=== PATIENT | male | born 1980 | race Caucasian/White ===

== ENCOUNTER 2016-11-28 02:25 | Emergency (ER) | payer SELFPAY ==
[~2016-11-28 02:25] MED LIST: B COMPLETE1 EACH PO; FISH OIL500 M1 PO; LOPRESSOR 550 MG/TAB PO; MULTIVITAMIN1 SGL PO; NORCO 325 MG-51 TA1 PO
== END 2016-11-28 04:28 | disposition home or self-care (01) ==
LOC: ED 02:25
DX: G54.0 Brachial plexus disorders (principal); M54.42 Lumbago with sciatica, left side; E66.01 Morbid (severe) obesity due to excess calories; Z68.45 Body mass index [BMI] 70 or greater, adult
CPT/HCPCS: J1885

== ENCOUNTER 2018-06-01 10:20 | Emergency (ER) | payer SELFPAY ==
[~2018-06-01] VITALS: Wt 250.1 kg
[2018-06-01] MEDS ORDERED: PRINIVIL20 M1 PO (10:24)
[2018-06-01] MEDS ORDERED: LASIX20 M1 PO (10:24)
[2018-06-01 12:23] LABS: EOS # 0.4 (0.04-0.40); HEMATOCRIT 48.6 % (42.0-52.0); HEMOGLOBIN 14.7 g/dL (13.5-18.0); LYMPH# 1.7 (1.50-4.00); MEAN CELL VOLUME 85 fl (78-100); MEAN CORPUSCULAR HEMOGLOBIN 26 pg (27-31); MEAN CORPUSCULAR HGB CONC 30 g/dL (33-37); MEAN PLATELET VOLUME 10.4 fl (7.4-10.4); MONO # 0.8 (0.20-0.80); NEU # 10.2 (1.40-6.50); PLATELET COUNT 290 K/mm3 (130-400); RED BLOOD COUNT 5.75 M/mm3 (4.20-5.60); RED CELL DISTRIBUTION WIDTH 16.6 % (11.5-14.5); WHITE BLOOD COUNT 13.2 K/mm3 (4.8-10.8)
[2018-06-01 12:37] LABS: ALBUMIN 3.9 g/dL (3.5-5.0); CALCIUM 8.5 mg/dL (8.4-10.2); TOTAL BILIRUBIN 0.8 mg/dL (0.2-1.3); TOTAL PROTEIN 7.4 g/dL (6.3-8.2)
[2018-06-01 12:38] LABS: POTASSIUM 5.5 mmol/L (3.6-5.0)
[2018-06-01 15:56] VITALS: BP 166/99
== END 2018-06-01 15:38 | disposition short-term general hospital (02) ==
LOC: ED 10:20
PROVIDERS: Family Medicine
DX: E66.2 Morbid (severe) obesity with alveolar hypoventilation (principal); I27.81 Cor pulmonale (chronic); I10 Essential (primary) hypertension; M79.671 Pain in right foot; Z91.14 Patient's other noncompliance with medication regimen; Z79.899 Other long term (current) drug therapy; R60.0 Localized edema; E65 Localized adiposity; L08.9 Local infection of the skin and subcutaneous tissue, unspecified; L53.9 Erythematous condition, unspecified
CPT/HCPCS: J1940

== ENCOUNTER 2018-07-05 20:01 | Emergency (ER) | payer SELFPAY ==
[~2018-07-05] VITALS: Ht 167.6 cm; Wt 222.7 kg
[~2018-07-05 20:01] MED LIST changes: +LASIX20 M1 PO; +PRINIVIL20 M1 PO
[2018-07-05 21:45] LABS: EOS # 0.5 (0.04-0.40); HEMATOCRIT 45.5 % (42.0-52.0); HEMOGLOBIN 14.5 g/dL (13.5-18.0); LYMPH# 1.7 (1.50-4.00); MEAN CELL VOLUME 81 fl (78-100); MEAN CORPUSCULAR HEMOGLOBIN 26 pg (27-31); MEAN CORPUSCULAR HGB CONC 32 g/dL (33-37); MEAN PLATELET VOLUME 10.2 fl (7.4-10.4); MONO # 0.7 (0.20-0.80); NEU # 6.3 (1.40-6.50); PLATELET COUNT 300 K/mm3 (130-400); RED BLOOD COUNT 5.65 M/mm3 (4.20-5.60); RED CELL DISTRIBUTION WIDTH 16.8 % (11.5-14.5); WHITE BLOOD COUNT 9.2 K/mm3 (4.8-10.8)
[2018-07-05 21:49] LABS: EOS % 5.6 % (0.0-4.0)
[2018-07-05 21:55] LABS: ALBUMIN 4.2 g/dL (3.5-5.0); CALCIUM 9.7 mg/dL (8.4-10.2); TOTAL BILIRUBIN 0.8 mg/dL (0.2-1.3); TOTAL PROTEIN 7.6 g/dL (6.3-8.2)
[2018-07-05 21:56] LABS: LIPASE 71 U/L (23-300)
[2018-07-06] MEDS ORDERED: GOOD SENSE OMEP20 MG PO (00:40)
[2018-07-06 00:51] VITALS: BP 147/79
== END 2018-07-06 00:51 | disposition home or self-care (01) ==
LOC: ED 20:01
PROVIDERS: Family Medicine
DX: K21.9 Gastro-esophageal reflux disease without esophagitis (principal); E66.2 Morbid (severe) obesity with alveolar hypoventilation; I27.81 Cor pulmonale (chronic); Z93.0 Tracheostomy status; Z79.899 Other long term (current) drug therapy
CPT/HCPCS: C9113; J3490

== ENCOUNTER 2018-10-11 17:31 | Emergency (ER) | payer SELFPAY ==
[~2018-10-11] VITALS: Ht 167.6 cm; Wt 207.7 kg
[~2018-10-11 17:31] MED LIST changes: +GOOD SENSE OMEP20 MG PO
[2018-10-11] MEDS ORDERED: GLUCOPHAGE PO (17:38)
[2018-10-11 18:53] LABS: EOS # 0.4 (0.04-0.40); EOS % 4.5 % (0.0-4.0); HEMATOCRIT 46.9 % (42.0-52.0); HEMOGLOBIN 14.8 g/dL (13.5-18.0); LYMPH# 1.7 (1.50-4.00); MEAN CELL VOLUME 84 fl (78-100); MEAN CORPUSCULAR HEMOGLOBIN 27 pg (27-31); MEAN CORPUSCULAR HGB CONC 32 g/dL (33-37); MEAN PLATELET VOLUME 10.5 fl (7.4-10.4); MONO # 0.9 (0.20-0.80); NEU # 4.8 (1.40-6.50); PLATELET COUNT 351 K/mm3 (130-400); RED BLOOD COUNT 5.57 M/mm3 (4.20-5.60); RED CELL DISTRIBUTION WIDTH 14.6 % (11.5-14.5); WHITE BLOOD COUNT 7.7 K/mm3 (4.8-10.8)
[2018-10-11 19:06] LABS: ALBUMIN 4.4 g/dL (3.5-5.0); CALCIUM 9.5 mg/dL (8.4-10.2); TOTAL BILIRUBIN 0.6 mg/dL (0.2-1.3); TOTAL PROTEIN 8.2 g/dL (6.3-8.2)
[2018-10-11 19:16] LABS: TROPONIN-I < 0.03 ng/mL (0.00-0.06)
[2018-10-11 19:29] LABS: D-DIMER 0.19 mg/L FEU (0.15-0.50)
[2018-10-11] MEDS ORDERED: POTASSIUM IODID PO (21:45)
[2018-10-11 21:51] VITALS: BP 124/87
== END 2018-10-11 21:51 | disposition home or self-care (01) ==
LOC: ED 17:31
PROVIDERS: Family Medicine
DX: T17.490A Other foreign object in trachea causing asphyxiation, initial encounter (principal); R06.4 Hyperventilation; E66.9 Obesity, unspecified; Z93.0 Tracheostomy status; Z87.891 Personal history of nicotine dependence; Z90.49 Acquired absence of other specified parts of digestive tract

== ENCOUNTER 2018-11-23 09:51 | Emergency (ER) | payer MEDICAID ==
[~2018-11-23] VITALS: Wt 199.5 kg
[~2018-11-23 09:51] MED LIST changes: +GLUCOPHAGE PO; +POTASSIUM IODID PO
[2018-11-23] MEDS ORDERED: DOXYCYCLINE MO100 M3 PO (10:05)
[2018-11-23] MEDS ORDERED: PREDNISONE10 MG PO (10:06)
[2018-11-23 10:49] LABS: EOS # 0.3 (0.04-0.40); EOS % 2.4 % (0.0-4.0); HEMATOCRIT 46.3 % (42.0-52.0); HEMOGLOBIN 14.9 g/dL (13.5-18.0); LYMPH# 3.1 (1.50-4.00); MEAN CELL VOLUME 85 fl (78-100); MEAN CORPUSCULAR HEMOGLOBIN 27 pg (27-31); MEAN CORPUSCULAR HGB CONC 32 g/dL (33-37); MEAN PLATELET VOLUME 10.1 fl (7.4-10.4); MONO # 0.8 (0.20-0.80); NEU # 6.2 (1.40-6.50); PLATELET COUNT 330 K/mm3 (130-400); RED BLOOD COUNT 5.45 M/mm3 (4.20-5.60); RED CELL DISTRIBUTION WIDTH 13.8 % (11.5-14.5); WHITE BLOOD COUNT 10.4 K/mm3 (4.8-10.8)
[2018-11-23 10:55] LABS: CALCIUM 9.4 mg/dL (8.4-10.2); POTASSIUM 3.8 mmol/L (3.6-5.0)
[2018-11-23 12:28] VITALS: BP 160/92
== END 2018-11-23 12:21 | disposition short-term general hospital (02) ==
LOC: ED 09:51
PROVIDERS: Family Medicine
DX: J04.10 Acute tracheitis without obstruction (principal); E66.2 Morbid (severe) obesity with alveolar hypoventilation; R04.2 Hemoptysis; G47.30 Sleep apnea, unspecified; I27.81 Cor pulmonale (chronic)

== ENCOUNTER 2019-05-07 17:26 | Emergency (ER) | payer MEDICAID ==
[~2019-05-07 17:26] MED LIST changes: +DOXYCYCLINE MO100 M3 PO; +PREDNISONE10 MG PO
[2019-05-07] MEDS ORDERED: MULTIVITAMIN1 SGL PO (19:58)
[2019-05-07] MEDS ORDERED: CALCIUM500 M1 PO (19:58)
[2019-05-07] MEDS ORDERED: PREDNISONE10 MG PO (22:00)
[2019-05-07 22:20] VITALS: BP 169/96
== END 2019-05-07 22:20 | disposition home or self-care (01) ==
LOC: ED 17:26
DX: L29.9 Pruritus, unspecified (principal); L50.9 Urticaria, unspecified; I11.0 Hypertensive heart disease with heart failure; I50.9 Heart failure, unspecified; E11.9 Type 2 diabetes mellitus without complications; J44.9 Chronic obstructive pulmonary disease, unspecified; E66.9 Obesity, unspecified; G47.33 Obstructive sleep apnea (adult) (pediatric); Z98.84 Bariatric surgery status; Z90.49 Acquired absence of other specified parts of digestive tract; Z87.891 Personal history of nicotine dependence
CPT/HCPCS: J1200; J2930; J3490; J7030

== ENCOUNTER 2019-11-01 15:01 | Emergency (ER) | payer SELFPAY ==
[~2019-11-01] VITALS: Ht 167.6 cm; Wt 120.5 kg
[~2019-11-01 15:01] MED LIST changes: +CALCIUM500 M1 PO
[2019-11-01] MEDS ORDERED: LOPRESSOR 550 MG/TAB PO (15:14)
[2019-11-01] MEDS ORDERED: LISINOPRIL20 MG PO (15:14)
[2019-11-01] MEDS ORDERED: FLUOXETINE40 MG PO (15:15)
[2019-11-01 16:57] LABS: URINE APPEARANCE HAZY; URINE COLOR YELLOW
[2019-11-01 16:58] LABS: URINE BILIRUBIN NEGATIVE (NEGATIVE); URINE BLOOD NEGATIVE (NEGATIVE); URINE GLUCOSE NEGATIVE (NEGATIVE); URINE KETONE NEGATIVE (NEGATIVE); URINE LEUKOCYTE ESTERASE TRACE (NEGATIVE); URINE NITRATE NEGATIVE (NEGATIVE); URINE PROTEIN(semi-quant) TRACE mg/dL (NEGATIVE); URINE UROBILINOGEN NORMAL (NORMAL)
[2019-11-01 16:59] LABS: URINE MUCUS PRESENT (NOT PRESENT)
[2019-11-01] MEDS ORDERED: TRAMADOL 50 MG TAB PO (17:12)
[2019-11-01] MEDS ORDERED: CYCLOBENZAPRINE10 M1 PO (17:23)
[2019-11-01 17:24] VITALS: BP 133/78
== END 2019-11-01 17:25 | disposition home or self-care (01) ==
LOC: ED 15:01
PROVIDERS: Family Medicine
DX: S39.012A Strain of muscle, fascia and tendon of lower back, initial encounter (principal); E86.0 Dehydration; I10 Essential (primary) hypertension; E66.9 Obesity, unspecified; Z68.41 Body mass index [BMI] 40.0-44.9, adult; X58.XXXA Exposure to other specified factors, initial encounter
CPT/HCPCS: J1885; J2360

== ENCOUNTER 2020-05-27 22:56 | Emergency (ER) | payer SELFPAY ==
[~2020-05-27 22:56] MED LIST changes: +CYCLOBENZAPRINE10 M1 PO; +FLUOXETINE40 MG PO; +LISINOPRIL20 MG PO; +TRAMADOL 50 MG TAB PO
[2020-05-27] MEDS ORDERED: ULTRAM50 M1 PO (23:27)
[2020-05-27] MEDS ORDERED: CEFDINIR300 MG PO (23:27)
[2020-05-27 23:42] VITALS: BP 153/90
== END 2020-05-27 23:42 | disposition home or self-care (01) ==
LOC: ED 22:56
DX: H65.02 Acute serous otitis media, left ear (principal)

== ENCOUNTER 2020-06-10 01:03 | Emergency (ER) | payer SELFPAY ==
[~2020-06-10] VITALS: Ht 167.6 cm; Wt 117.9 kg
[~2020-06-10 01:03] MED LIST changes: +CEFDINIR300 MG PO; +ULTRAM50 M1 PO
[2020-06-10 01:54] LABS: EOS # 0.4 (0.04-0.40); EOS % 3.8 % (0.0-4.0); HEMATOCRIT 49.8 % (42.0-52.0); LYMPH# 2.6 (1.50-4.00); MEAN CELL VOLUME 91 fl (78-100); MEAN CORPUSCULAR HEMOGLOBIN 29 pg (27-31); MEAN CORPUSCULAR HGB CONC 32 g/dL (33-37); MEAN PLATELET VOLUME 10.1 fl (7.4-10.4); MONO # 0.8 (0.20-0.80); NEU # 7.3 (1.40-6.50); PLATELET COUNT 327 K/mm3 (130-400); RED BLOOD COUNT 5.46 M/mm3 (4.20-5.60); RED CELL DISTRIBUTION WIDTH 13.3 % (11.5-14.5); WHITE BLOOD COUNT 11.2 K/mm3 (4.8-10.8)
[2020-06-10 01:58] LABS: ALBUMIN 3.8 g/dL (3.5-5.0); POTASSIUM 5.7 mmol/L (3.5-5.1)
[2020-06-10 02:00] LABS: TOTAL PROTEIN 6.3 g/dL (6.4-8.3)
[2020-06-10 02:02] LABS: TOTAL BILIRUBIN 0.3 mg/dL (0.2-1.2)
[2020-06-10 06:57] LABS: URINE APPEARANCE CLEAR; URINE COLOR YELLOW
[2020-06-10 06:58] LABS: URINE BILIRUBIN NEGATIVE (NEGATIVE); URINE BLOOD NEGATIVE (NEGATIVE); URINE GLUCOSE NEGATIVE (NEGATIVE); URINE KETONE NEGATIVE (NEGATIVE); URINE LEUKOCYTE ESTERASE NEGATIVE (NEGATIVE); URINE MUCUS PRESENT (NOT PRESENT); URINE NITRATE NEGATIVE (NEGATIVE); URINE PROTEIN(semi-quant) NEGATIVE (NEGATIVE); URINE UROBILINOGEN NORMAL (NORMAL); URINE WBC 0-1 /hpf (0-3)
[2020-06-10] MEDS ORDERED: GOOD NEIGHBOR M25 M1 PO (08:03)
[2020-06-10 08:26] VITALS: BP 146/89
== END 2020-06-10 08:27 | disposition home or self-care (01) ==
LOC: ED 01:03
PROVIDERS: Nurse Practitioner Primary Care
DX: R42 Dizziness and giddiness (principal); I50.9 Heart failure, unspecified; Z98.84 Bariatric surgery status; Z90.49 Acquired absence of other specified parts of digestive tract; Z88.6 Allergy status to analgesic agent
CPT/HCPCS: J7030